=== PATIENT | male | born 1980 | race Caucasian/White ===

== ENCOUNTER 2016-09-02 12:58 | Emergency (ER) | payer OTHER ==
[2016-09-02 13:14] VITALS: TEMP 98
[2016-09-02] MEDS ORDERED: Oxycodone/Acetaminophen 5/325 mg Tab PO STA (13:57)
[2016-09-02] MEDS ORDERED: Oxycodone/Acetaminophen 5/325 mg Tab ONE (14:03)
--- NOTE | 2016-09-02 14:17 | RAD ---
PROCEDURE: Radiographs of the Lumbar Spine. HISTORY: pain COMPARISON: None available. FINDINGS: BONES: Alignment appears satisfactory. No listhesis. No acute displaced fracture identified. DISC SPACES: Unremarkable. OTHER FINDINGS: None. IMPRESSION: No acute displaced fracture or subluxation identified.
--- NOTE | 2016-09-02 14:17 | C.PDOC ---
History Of Present Illness 35 yr old male presents to the ER with complaints of lower back pain since yesterday. Patient states the pain started after lifting heavy object while at work. pain is localized, non-radiating and worse with movement. Patient denies fever, chill, chest pain, SOB, nausea, vomiting, abdominal pain, UTI sx, saddle anesthesia, incontinence, denies weakness, sensory or vascular deficits to B/ lEs. Ambulate to ED, wear lower back brace. Time Seen by Provider: 09/02/16 13:39 Chief Complaint (Nursing): Back Pain History Per: Patient History/Exam Limitations: no limitations Onset/Duration Of Symptoms: Days (1) Current Symptoms Are (Timing): Still Present Past Medical History Reviewed: Historical Data, Nursing Documentation, Vital Signs Vital Signs: Last Vital Signs Temp 98 F 09/02/16 13:11 Pulse 99 H 09/02/16 13:11 Resp 18 09/02/16 13:11 BP 129/76 09/02/16 13:11 Pulse Ox 96 09/02/16 14:19 Family History: States: No Known Family Hx - Social History Hx Tobacco Use: No Hx Alcohol Use: Yes Hx Substance Use: No - Immunization History Hx Tetanus Toxoid Vaccination: No Hx Influenza Vaccination: No Hx Pneumococcal Vaccination: No Review Of Systems Except As Marked, All Systems Reviewed And Found Negative. Constitutional: Negative for: Fever, Chills Cardiovascular: Negative for: Chest Pain Respiratory: Negative for: Shortness of Breath Gastrointestinal: Negative for: Nausea, Vomiting, Abdominal Pain, Diarrhea Musculoskeletal: Positive for: Back Pain (Low) Neurological: Negative for: Weakness, Numbness Physical Exam - Physical Exam Appears: Well, Non-toxic, No Acute Distress Skin: Warm, Dry, No Rash, No Ecchymosis Head: Normacephalic Eye(s): bilateral: Normal Inspection Nose: Normal Oral Mucosa: Moist Throat: Normal, No Erythema, No Exudate, No Drooling Neck: Normal, Normal ROM, Supple Chest: Symmetrical, No Tenderness Cardiovascular: Rhythm Regular, No Murmur Respiratory: No Rales, No Rhonchi, No Stridor, No Wheezing Gastrointestinal/Abdominal: Normal Exam, Soft, No Tenderness, No Guarding, No Rebound Back: Normal Inspection, No CVA Tenderness, No Muscle Spasm, Paraspinal Tenderness (Lumbar paraspinal tenderness) Extremity: Normal ROM, No Pedal Edema, No Deformity, No Swelling Neurological/Psych: Oriented x3, Normal Speech, Normal Motor, Normal Sensation, Normal Reflexes ED Course And Treatment O2 Sat by Pulse Oximetry: 96 Pulse Ox Interpretation: Normal - Other Rad L-spine X-Ray: Read By Radiologist Interpretation: ccession No. : [id number]. Patient Name / ID : ANTHONY HERNANDEZ / [id number]. Exam Date : 09/02/2016 13:51:55 ( Approved ). Study Comment : Sex / Age : M / 35Y. Creator : Soila Burns MD. Dictator : Soila Burns MD. Adult School Counselor : Pattern Generator Operator : Soila Burns MD. Approver2 : Report Date : 09/02/2016 14:16:07. My Comment : . PROCEDURE: Radiographs of the Lumbar Spine. HISTORY: pain. COMPARISON: None available. FINDINGS: BONES: Alignment appears satisfactory. No listhesis. No acute displaced fracture identified. DISC SPACES: Unremarkable. OTHER FINDINGS: None. IMPRESSION: No acute displaced fracture or subluxation identified. Progress Note: on re-evaluation, pt is afebrile, hemodynamicaly stable. Non- toxic. Ambulatoyr in ED with stable gait. Abd: benign. BacK : (-) CVA tenderness. neurologicaly intact. L-spine xray review and appears normal. Pt has clinical findings c/w lower back strain. pt advised and ref. to F/u with PMD in 1-2 days for re-eavl. return if any new changes. Medical Decision Making Medical Decision Making: PLAN: * X-Ray - LS Spine * Motrin PO * Percocet PO Disposition Counseled Patient/Family Regarding: Studies Performed, Diagnosis, Need For Followup, Rx Given - Disposition Referrals: [facility] [Outside] Disposition: HOME/ ROUTINE Disposition Time: 14:20 Condition: STABLE Additional Instructions: Light duty to lower back, avoid heavy lifting, bending, etc. Take pain medication as need Follow up with PM Din 2-3 days for re-evaluation. Return to ED if any worsening or new changes. Prescriptions: Ibuprofen [Motrin] 1 tab PO TID PRN #30 tab PRN Reason: Pain Methocarbamol [Robaxin] 500 mg PO TID #14 tab traMADol [Ultram] 50 mg PO TID #7 tab Instructions: Back Pain (ED) Forms: Work Excuse Print Language: MACEDONIAN - Clinical Impression Clinical Impression: Low back strain - PA / MEDICAL SALES SPECIALIST / Resident Statement MD/DO has reviewed & agrees with the documentation as recorded. - Scribe Statement The provider has reviewed the documentation as recorded by the Scribe Kristi Weldon All medical record entries made by the Nolaibbridget were at my direction and personally dictated by me. I have reviewed the chart and agree that the record accurately reflects my personal performance of the history, physical exam, medical decision making, and the department course for this patient. I have also personally directed, reviewed, and agree with the discharge instructions and disposition.
[2016-09-02 15:18] VITALS: BP 126/84; PULSE 78; RESP 16; O2SAT 98
== END 2016-09-02 15:17 | disposition home or self-care (01) ==
LOC: C.ER 12:58
DX: S39.012A Strain of muscle, fascia and tendon of lower back, initial encounter (principal); X50.0XXA Overexertion from strenuous movement or load, initial encounter; Y92.89 Other specified places as the place of occurrence of the external cause; Y99.0 Civilian activity done for income or pay

== ENCOUNTER 2017-02-17 09:28 | Emergency (ER) | payer OTHER ==
[2017-02-17 09:36] VITALS: O2SAT 97
[2017-02-17] MEDS ORDERED: Naproxen 550 mg Tab PO STA (09:39)
[2017-02-17] MEDS ORDERED: Lidocaine 1% Inj (20ml) INFIL STA (09:39)
--- NOTE | 2017-02-17 09:41 | C.PDOC ---
History Of Present Illness 36 yo male, presents with left hand puncture wound. pt states a screwdriver accidently punctured his left hand, at work. no other injury or complaint Time Seen by Provider: 02/17/17 09:36 Chief Complaint (Nursing): Abnormal Skin Integrity Past Medical History Reviewed: Historical Data, Nursing Documentation, Vital Signs Vital Signs: Last Vital Signs Temp 98.4 F 02/17/17 10:40 Pulse 81 02/17/17 10:40 Resp 18 02/17/17 10:40 BP 132/85 02/17/17 10:40 Pulse Ox 97 02/17/17 11:31 Family History: States: Unknown Family Hx - Social History Hx Tobacco Use: No Hx Alcohol Use: Yes Hx Substance Use: No - Immunization History Hx Tetanus Toxoid Vaccination: No Hx Influenza Vaccination: No Hx Pneumococcal Vaccination: No Review Of Systems Musculoskeletal: Positive for: Hand Pain ((+)left) Physical Exam - Physical Exam Appears: Well, No Acute Distress Skin: Normal Color, Warm, Dry Eye(s): bilateral: Normal Inspection, PERRL, EOMI Nose: Normal Throat: Normal Neck: Normal Cardiovascular: Rhythm Regular Respiratory: Normal Breath Sounds Gastrointestinal/Abdominal: Normal Exam Back: Normal Inspection Extremity: Normal ROM, Tenderness ((+)mild left), No Deformity, Swelling ((+) puncture wound to volar aspect of left hand, <0.5cm), Other ((+)able to flex, extend fingers, wrist w/o difficulty) ED Course And Treatment O2 Sat by Pulse Oximetry: 97 Medical Decision Making Medical Decision Makin 4-0 nylon placed. xr neg. advise 10 day removal, and return precautions Disposition - Disposition Referrals: [facility] [Outside] [facility] [Outside] [facility] [Outside] Disposition: HOME/ ROUTINE Disposition Time: 10:22 Condition: STABLE Additional Instructions: return to er in 10 days for removal. return immediately with any worsening symptoms or concerns. Prescriptions: Naproxen 500 mg PO BID PRN #14 tab PRN Reason: Pain, Mild (1-3) Instructions: Care For Your Stitches (ED), Laceration (ED), Puncture Wound (ED) Forms: [facility] (Serbian), Work Excuse - POA Present On Arrival: None - Clinical Impression Clinical Impression: Puncture wound, Laceration
[2017-02-17] MEDS ORDERED: Lidocaine 1% Inj (20ml) ONE (09:48)
[2017-02-17] MEDS ORDERED: Naproxen 550 mg Tab PO ONE (09:48)
--- NOTE | 2017-02-17 10:06 | RAD ---
PROCEDURE: Left Hand Radiographs. HISTORY: trauma COMPARISON: None available. FINDINGS: BONES: No acute displaced fracture. JOINTS: No dislocation. SOFT TISSUES: Unremarkable. No evidence of radiopaque foreign body. OTHER FINDINGS: None. IMPRESSION: No acute displaced fracture, dislocation, or significant joint effusion identified. If symptoms persist, or if there is continued clinical concern, x-ray follow-up in 7-10 days should be considered.
[2017-02-17 10:45] VITALS: BP 132/85; PULSE 81; RESP 18; TEMP 98.4
== END 2017-02-17 10:40 | disposition home or self-care (01) ==
LOC: C.ER 09:28
DX: S61.432A Puncture wound without foreign body of left hand, initial encounter (principal); S61.412A Laceration without foreign body of left hand, initial encounter; W27.0XXA Contact with workbench tool, initial encounter; Y99.0 Civilian activity done for income or pay; Z23 Encounter for immunization